=== PATIENT | male | born 1935 | race Hispanic/Latino ===

== ENCOUNTER → 2019-09-28 | Outpatient (CLI) | payer MEDICARE ==
[~2019-09-28] MED LIST: REGADENOSON 0.4 MG/5 ML PF SYG IVP ONE; REGADENOSON 0.4 MG/5 ML PF SYG IVP SCH
== END | disposition home or self-care (01) ==
LOC: SHCH 08:46
PROVIDERS: ATTEND Internal Medicine Cardiovascular Disease
DX: R07.9 Chest pain, unspecified (principal)
CPT/HCPCS: 78452; 93017; 96374; A9500 ×2; J2785

== ENCOUNTER 2021-11-23 14:07 | Inpatient (IN) | payer MEDICARE ==
[~2021-11-23] VITALS: Ht 162.6 cm; Wt 59.8 kg
[~2021-11-23 14:07] MED LIST changes: -REGADENOSON 0.4 MG/5 ML PF SYG IVP ONE; -REGADENOSON 0.4 MG/5 ML PF SYG IVP SCH; +TAMS-1 PO
[2021-11-23 14:32] LABS: BASOPHILS % (AUTO) 0.3 % (0.0-5.0); EOSINOPHILS % (AUTO) 0.1 % (0.0-8.0); HEMATOCRIT 41.7 % (42-54); LYMPHOCYTES % (AUTO) 24.9 % (21.0-51.0); MEAN CORPUSCULAR HEMOGLOBIN 33.1 pg (27.0-33.0); MEAN CORPUSCULAR HGB CONC 33.6 g/dL (32.0-36.0); MEAN CORPUSCULAR VOLUME 98.6 fL (79-99); MONOCYTES % (AUTO) 5.5 % (3.0-13.0); NEUTROPHILS % (AUTO) 68.5 % (40.0-77.0); PLATELET COUNT (AUTO) 215 K/uL (130-400); RED BLOOD CELL COUNT(AUTO) 4.23 MIL/uL (4.50-6.20); RED CELL DISTRIBUTION WIDTH 14.8 % (11.0-15.5); WHITE BLOOD COUNT (AUTO) 13.6 K/uL (4.8-10.8)
[2021-11-23 14:48] LABS: ALBUMIN 2.7 g/dL (3.5-5.0); CREATININE 5.2 mg/dL (0.5-1.5)
[2021-11-23 14:50] LABS: POTASSIUM 6.1 mmol/L (3.5-5.1)
[2021-11-23 14:52] LABS: TOTAL PROTEIN, SERUM 8.8 g/dL (6.0-8.3)
[2021-11-23] MEDS ORDERED: ONDANSETRON 4MG INJ IVP ONE (15:00)
[2021-11-23] MEDS ORDERED: 0.9%NACL 1000ML 1,000 ML IV ONE ×2 (15:00)
[2021-11-23] MEDS ORDERED: INSULIN HUMULIN R 100 UNIT/ML 3ML IV ONE (15:00)
[2021-11-23] MEDS ORDERED: MORPHINE 2 MG SYG IVP ONE (15:00)
[2021-11-23] MEDS ORDERED: DEXTROSE 50%-WATER 50 ML DISP.SYRIN IV ONE (15:00)
[2021-11-23] MEDS ORDERED: CALCIUM GLUC 1GM/10ML VIAL IV STA (15:05)
[2021-11-23] MEDS ORDERED: SODIUM BICARB 50MEQ 50ML VIAL 50 ML ONE (15:17)
[2021-11-23] MEDS ORDERED: SODIUM BICARB 8.4% 50ML SYRINGE IVP SCH (15:30)
[2021-11-23] MEDS: 0.9%NACL 1000ML 1,000 ML IV SCH (16:00)
[2021-11-23] MEDS ORDERED: PHARMACY COMMUNICATION MISC SCH ×2 (16:30)
[2021-11-23] MEDS ORDERED: ZOSYN 3.375GM+NS 50ML 50 ML IV SCH (16:30)
[2021-11-23 17:49] LABS: APPEARANCE,URINE Cloudy (CLEAR); BILIRUBIN,URINE Moderate (NEGATIVE); COLOR,URINE Dark Yellow (YELLOW); GLUCOSE, URINE (UA) Negative (NEGATIVE); KETONES,URINE Trace mg/dL (NEGATIVE); LEUKOCYTE ESTERASE ,URINE Small (NEGATIVE); NITRATE,URINE Positive (NEGATIVE); OCCULT BLOOD,URINE Negative (NEGATIVE); PROTEIN,URINE POS 1+ mg/dL (NEGATIVE); UROBILINOGEN,URINE 0.2 mg/dL (0.2-1.0)
[2021-11-23 17:54] LABS: CREATININE,URINE RANDOM 320 mg/dL (30-135); SODIUM,URINE RANDOM < 14 mmol/l (40-220)
[2021-11-23 17:58] LABS: RBC,URINE 0-1 /HPF (0-1)
[2021-11-23 17:59] LABS: BACTERIA,URINE Few /HPF (None Seen)
[2021-11-23 18:00] LABS: MUCUS,URINE Rare LPF (None Seen); SQUAMOUS EPITHELIAL CELL,UR Rare /HPF (0-2)
[2021-11-23] MEDS: LINEZOLID 600 MG/ISO-OSM 300 ML IV SCH (18:00)
[2021-11-23 18:02] LABS: AMORPHOUS SEDIMENT,UR Few /LPF (None Seen)
[2021-11-23 20:28] LABS: CREATININE 4.4 mg/dL (0.5-1.5); POTASSIUM 5.6 mmol/L (3.5-5.1)
[2021-11-23 21:56] VITALS: BP 107/70
[2021-11-23 22:57] VITALS: BP 118/74
[2021-11-24 00:36] LABS: CREATININE 4.3 mg/dL (0.5-1.5); POTASSIUM 5.4 mmol/L (3.5-5.1)
[2021-11-24] MEDS: 0.9%NACL 1000ML 1,000 ML IV SCH ×3 (02:31→11:25)
[2021-11-24 03:39] VITALS: BP 93/61
[2021-11-24] MEDS: LINEZOLID 600 MG/ISO-OSM 300 ML IV SCH ×2 (04:27→16:05)
[2021-11-24 06:32] LABS: CREATININE 3.9 mg/dL (0.5-1.5); POTASSIUM 4.9 mmol/L (3.5-5.1)
[2021-11-24 07:09] LABS: BASOPHILS % (AUTO) 0.3 % (0.0-5.0); EOSINOPHILS % (AUTO) 0.7 % (0.0-8.0); HEMATOCRIT 34.6 % (42-54); LYMPHOCYTES % (AUTO) 22.6 % (21.0-51.0); MEAN CORPUSCULAR HEMOGLOBIN 33.4 pg (27.0-33.0); MEAN CORPUSCULAR HGB CONC 32.7 g/dL (32.0-36.0); MEAN CORPUSCULAR VOLUME 102.4 fL (79-99); MONOCYTES % (AUTO) 5.9 % (3.0-13.0); NEUTROPHILS % (AUTO) 69.8 % (40.0-77.0); PLATELET COUNT (AUTO) 103 K/uL (130-400); RED BLOOD CELL COUNT(AUTO) 3.38 MIL/uL (4.50-6.20)
[2021-11-24 07:30] VITALS: BP 92/61
[2021-11-24] MEDS: ZOSYN 3.375GM+NS 50ML 50 ML IV SCH ×2 (08:30→20:17)
[2021-11-24] MEDS ORDERED: NA ZIRCON CYCLOSIL(LOKELMA 10GM) PO SCH (09:00)
[2021-11-24 09:22] LABS: % IRON SATURATION 39.3 % (30-44)
[2021-11-24] MEDS: SODIUM BICARBONATE 650 MG TAB PO SCH ×3 (09:27→16:05)
[2021-11-24 09:49] LABS: ALBUMIN 2.2 g/dL (3.5-5.0); BILIRUBIN,DIRECT 0.6 mg/dL (0.0-0.3); BILIRUBIN,TOTAL 1.3 mg/dL (0.2-1.0); TOTAL PROTEIN, SERUM 6.9 g/dL (6.0-8.3)
[2021-11-24 09:54] LABS: THYROID STIMULATING HORMONE 2.62 uIU/mL (0.36-3.74)
[2021-11-24] MEDS: DEXTROSE 5 % AND 0.9 % NACL 1,000 ML IV SCH ×2 (10:10→18:36)
[2021-11-24 11:00] VITALS: BP 94/50
[2021-11-24] MEDS ORDERED: PANTOPRAZOLE 40 MG TAB DR PO SCH (11:30)
[2021-11-24 12:18] LABS: CREATININE 3.9 mg/dL (0.5-1.5); POTASSIUM 5.1 mmol/L (3.5-5.1)
[2021-11-24] MEDS: MIDODRINE HCL 5 MG TABLET PO PRN ×3 (12:43→20:46)
[2021-11-24 15:30] VITALS: BP 98/48
[2021-11-24 17:59] LABS: POTASSIUM 3.8 mmol/L (3.5-5.1)
[2021-11-24 19:06] VITALS: BP 90/48
[2021-11-24] MEDS ORDERED: 0.9%NACL 50ML 50 ML IV ONE (20:02)
[2021-11-24] MEDS ORDERED: ACETAMINOPHEN 325 MG TAB ONE (23:32)
[2021-11-25] MEDS ORDERED: ACETAMINOPHEN 325 MG TAB PO PRN
[2021-11-25] MEDS: DEXTROSE 5 % AND 0.9 % NACL 1,000 ML IV SCH ×3 (01:55→17:58)
[2021-11-25 03:09] VITALS: BP 104/46
[2021-11-25] MEDS: LINEZOLID 600 MG/ISO-OSM 300 ML IV SCH ×2 (04:32→17:56)
[2021-11-25] MEDS: PANTOPRAZOLE 40 MG TAB DR PO SCH (06:00)
[2021-11-25 06:39] LABS: BASOPHILS % (AUTO) 0.2 % (0.0-5.0); EOSINOPHILS % (AUTO) 1.4 % (0.0-8.0); HEMATOCRIT 23.3 % (42-54); LYMPHOCYTES % (AUTO) 21.8 % (21.0-51.0); MEAN CORPUSCULAR HEMOGLOBIN 33.5 pg (27.0-33.0); MEAN CORPUSCULAR HGB CONC 34.8 g/dL (32.0-36.0); MEAN CORPUSCULAR VOLUME 96.3 fL (79-99); MONOCYTES % (AUTO) 5.4 % (3.0-13.0); NEUTROPHILS % (AUTO) 70.3 % (40.0-77.0); PLATELET COUNT (AUTO) 94 K/uL (130-400); RED BLOOD CELL COUNT(AUTO) 2.42 MIL/uL (4.50-6.20); RED CELL DISTRIBUTION WIDTH 14.5 % (11.0-15.5); WHITE BLOOD COUNT (AUTO) 4.3 K/uL (4.8-10.8)
[2021-11-25 06:52] LABS: ALBUMIN 1.5 g/dL (3.5-5.0); BILIRUBIN,TOTAL 0.6 mg/dL (0.2-1.0); CREATININE 2.5 mg/dL (0.5-1.5); MAGNESIUM 1.3 mg/dL (1.80-2.40); POTASSIUM 3.9 mmol/L (3.5-5.1); TOTAL PROTEIN, SERUM 4.8 g/dL (6.0-8.3)
[2021-11-25] MEDS ORDERED: 0.9%NACL 50ML 50 ML IV ONE ×2 (07:49→20:13)
[2021-11-25] MEDS: SODIUM BICARBONATE 650 MG TAB PO SCH ×3 (07:59→17:56)
[2021-11-25] MEDS: ZOSYN 3.375GM+NS 50ML 50 ML IV SCH ×2 (07:59→20:47)
[2021-11-25 08:00] VITALS: BP 89/42
[2021-11-25 12:07] VITALS: BP 92/51
[2021-11-25 16:19] VITALS: BP 94/53
[2021-11-25 19:11] VITALS: BP 99/52
[2021-11-25 23:52] VITALS: BP 112/50
[2021-11-26] MEDS: DEXTROSE 5 % AND 0.9 % NACL 1,000 ML IV SCH ×3 (01:19→17:43)
[2021-11-26 03:59] VITALS: BP 120/57
[2021-11-26] MEDS: LINEZOLID 600 MG/ISO-OSM 300 ML IV SCH ×2 (04:48→17:43)
[2021-11-26] MEDS: PANTOPRAZOLE 40 MG TAB DR PO SCH (06:07)
[2021-11-26] MEDS ORDERED: 0.9%NACL 50ML 50 ML IV ONE ×2 (06:59→20:27)
[2021-11-26] MEDS: ZOSYN 3.375GM+NS 50ML 50 ML IV SCH ×2 (07:01→20:56)
[2021-11-26] MEDS: SODIUM BICARBONATE 650 MG TAB PO SCH ×3 (07:01→17:43)
[2021-11-26 07:48] VITALS: BP 99/44
[2021-11-26 12:00] VITALS: BP 115/81
[2021-11-26 12:13] LABS: HEMATOCRIT 27.9 % (42-54); MEAN CORPUSCULAR HEMOGLOBIN 34.1 pg (27.0-33.0); MEAN CORPUSCULAR HGB CONC 34.1 g/dL (32.0-36.0); RED BLOOD CELL COUNT(AUTO) 2.79 MIL/uL (4.50-6.20); RED CELL DISTRIBUTION WIDTH 15.4 % (11.0-15.5); WHITE BLOOD COUNT (AUTO) 4.5 K/uL (4.8-10.8)
[2021-11-26 12:33] LABS: CREATININE 1.8 mg/dL (0.5-1.5); POTASSIUM 3.5 mmol/L (3.5-5.1)
[2021-11-26 16:00] VITALS: BP 102/51
[2021-11-26 20:08] VITALS: BP 98/55
[2021-11-26] MEDS: GABAPENTIN 300 MG CAPSULE PO SCH (20:53)
[2021-11-26] MEDS: BACITRACIN 28.4 GM OINT TP SCH (21:00)
[2021-11-27 00:08] VITALS: BP 108/59
[2021-11-27] MEDS: DEXTROSE 5 % AND 0.9 % NACL 1,000 ML IV SCH ×2 (01:30→09:39)
[2021-11-27 04:08] VITALS: BP 116/68
[2021-11-27 05:04] LABS: HEMATOCRIT 27.1 % (42-54); MEAN CORPUSCULAR HEMOGLOBIN 34.6 pg (27.0-33.0); MEAN CORPUSCULAR HGB CONC 34.7 g/dL (32.0-36.0); MEAN CORPUSCULAR VOLUME 99.6 fL (79-99); RED BLOOD CELL COUNT(AUTO) 2.72 MIL/uL (4.50-6.20); RED CELL DISTRIBUTION WIDTH 15.2 % (11.0-15.5); WHITE BLOOD COUNT (AUTO) 4.1 K/uL (4.8-10.8)
[2021-11-27 05:16] LABS: CREATININE 1.6 mg/dL (0.5-1.5); POTASSIUM 3.4 mmol/L (3.5-5.1)
[2021-11-27] MEDS: LINEZOLID 600 MG/ISO-OSM 300 ML IV SCH (05:17)
[2021-11-27 07:37] VITALS: BP 116/62
[2021-11-27] MEDS ORDERED: 0.9%NACL 50ML 50 ML IV ONE (09:34)
[2021-11-27] MEDS: ZOSYN 3.375GM+NS 50ML 50 ML IV SCH (09:38)
[2021-11-27] MEDS: BACITRACIN 28.4 GM OINT TP SCH (09:38)
[2021-11-27] MEDS: GABAPENTIN 300 MG CAPSULE PO SCH (09:39)
[2021-11-27] MEDS: SODIUM BICARBONATE 650 MG TAB PO SCH ×2 (09:39→13:03)
[2021-11-27] MEDS: PANTOPRAZOLE 40 MG TAB DR PO SCH (09:42)
[2021-11-27] MEDS ORDERED: TAMSULOSIN HCL 0.4 MG CAP.ER.24H ONE (10:35)
[2021-11-27 11:14] VITALS: BP 115/68
[2021-11-27 15:20] VITALS: BP 109/64
[2021-11-28] MEDS ORDERED: TAMSULOSIN HCL 0.4 MG CAP.ER.24H PO SCH (09:00)
== END 2021-11-27 16:26 | DRG 871 ==
LOC: EDH 14:07 → EDHIP 15:57 → 2DH 21:24
PROVIDERS: ADMIT Internal Medicine; ATTEND Internal Medicine
DX: A41.9 Sepsis, unspecified organism (principal); E43 Unspecified severe protein-calorie malnutrition; E87.1 Hypo-osmolality and hyponatremia; N17.9 Acute kidney failure, unspecified; K63.2 Fistula of intestine; L02.211 Cutaneous abscess of abdominal wall; N40.0 Benign prostatic hyperplasia without lower urinary tract symptoms; E86.1 Hypovolemia; E87.5 Hyperkalemia; E88.09 Other disorders of plasma-protein metabolism, not elsewhere classified; E11.9 Type 2 diabetes mellitus without complications; I10 Essential (primary) hypertension; E86.0 Dehydration; K43.2 Incisional hernia without obstruction or gangrene; D64.9 Anemia, unspecified; E83.52 Hypercalcemia; Z93.3 Colostomy status; Z93.2 Ileostomy status; Z68.22 Body mass index [BMI] 22.0-22.9, adult
CPT/HCPCS: 36415; 70250; 70450; 71045; 72170; 74176; 80048; 80053; 80076; 81001; 82550; 82570; 82607; 82728; 82746; 83540; 83550; 83605; 83735; 83935; 84134; 84300; 84443; 84484; 85025; 85027; 87040; 87088; 92610; 93005; 97039; 99291; G0378; J0610; J1815; J2020; J2405; J2543; J3490; J7030; J7042

== ENCOUNTER 2021-12-03 21:08 | Emergency (ER) | payer MEDICARE ==
[2021-12-03] MEDS ORDERED: 0.9%NACL 1000ML 1,000 ML IV ONE (23:00)
[2021-12-03] MEDS ORDERED: ONDANSETRON 4MG INJ IVP ONE (23:00)
[2021-12-04 00:32] LABS: CREATININE 1.4 mg/dL (0.5-1.5); POTASSIUM 3.5 mmol/L (3.5-5.1)
[2021-12-04 00:36] LABS: ALBUMIN 1.7 g/dL (3.5-5.0); BILIRUBIN,TOTAL 0.6 mg/dL (0.2-1.0); TOTAL PROTEIN, SERUM 5.5 g/dL (6.0-8.3)
[2021-12-04 00:38] LABS: BASOPHILS % (AUTO) 0.3 % (0.0-5.0); EOSINOPHILS % (AUTO) 0.8 % (0.0-8.0); LYMPHOCYTES % (AUTO) 39.4 % (21.0-51.0); MEAN CORPUSCULAR HEMOGLOBIN 33.2 pg (27.0-33.0); MEAN CORPUSCULAR HGB CONC 33.3 g/dL (32.0-36.0); MEAN CORPUSCULAR VOLUME 99.6 fL (79-99); MONOCYTES % (AUTO) 4.6 % (3.0-13.0); NEUTROPHILS % (AUTO) 54.6 % (40.0-77.0); PLATELET COUNT (AUTO) 68 K/uL (130-400); RED BLOOD CELL COUNT(AUTO) 2.71 MIL/uL (4.50-6.20); RED CELL DISTRIBUTION WIDTH 14.2 % (11.0-15.5); WHITE BLOOD COUNT (AUTO) 3.7 K/uL (4.8-10.8)
[2021-12-04] MEDS ORDERED: ONDA4TAB10 PO (01:15)
[2021-12-04 01:21] VITALS: BP 150/87
== END 2021-12-04 04:56 | disposition home or self-care (01) ==
LOC: EDH 21:08
DX: R11.10 Vomiting, unspecified (principal); Z93.3 Colostomy status
CPT/HCPCS: 36415; 74018; 80053; 85025; 96361; 96374; 99284; J2405; J7030

== ENCOUNTER 2021-12-06 16:05 | Emergency (ER) | payer MEDICARE ==
[~2021-12-06] VITALS: Ht 162.6 cm; Wt 59.0 kg
[~2021-12-06 16:05] MED LIST changes: +ONDA4TAB10 PO
[2021-12-06 17:14] LABS: BASOPHILS % (AUTO) 0.2 % (0.0-5.0); EOSINOPHILS % (AUTO) 1.4 % (0.0-8.0); HEMATOCRIT 31.3 % (42-54); LYMPHOCYTES % (AUTO) 33.9 % (21.0-51.0); MEAN CORPUSCULAR HEMOGLOBIN 34.3 pg (27.0-33.0); MEAN CORPUSCULAR HGB CONC 34.8 g/dL (32.0-36.0); MEAN CORPUSCULAR VOLUME 98.4 fL (79-99); MONOCYTES % (AUTO) 3.4 % (3.0-13.0); NEUTROPHILS % (AUTO) 60.9 % (40.0-77.0); PLATELET COUNT (AUTO) 65 K/uL (130-400); RED BLOOD CELL COUNT(AUTO) 3.18 MIL/uL (4.50-6.20); RED CELL DISTRIBUTION WIDTH 13.5 % (11.0-15.5); WHITE BLOOD COUNT (AUTO) 4.4 K/uL (4.8-10.8)
[2021-12-06 17:24] LABS: CREATININE 1.2 mg/dL (0.5-1.5); POTASSIUM 3.8 mmol/L (3.5-5.1)
[2021-12-06 17:34] LABS: ALBUMIN 2.2 g/dL (3.5-5.0); BILIRUBIN,TOTAL 0.9 mg/dL (0.2-1.0); TOTAL PROTEIN, SERUM 6.2 g/dL (6.0-8.3)
[2021-12-06] MEDS ORDERED: ONDANSETRON 4MG INJ IVP ONE (20:00)
[2021-12-06] MEDS ORDERED: 0.9% NACL 500ML IV.SOLN 500 ML IV ONE (20:00)
[2021-12-06 21:23] VITALS: BP 105/62
[2021-12-06] MEDS ORDERED: ONDA4SOL PO (21:26)
== END 2021-12-06 23:11 ==
LOC: EDH 16:05
DX: R11.0 Nausea (principal); E86.0 Dehydration; E11.9 Type 2 diabetes mellitus without complications; I10 Essential (primary) hypertension; N40.0 Benign prostatic hyperplasia without lower urinary tract symptoms; Z93.3 Colostomy status; Z79.899 Other long term (current) drug therapy
CPT/HCPCS: 36415; 80053; 83690; 84484; 85025; 93005; 96374; 99285; J2405; J7040